=== PATIENT | male | born 1980 | race Two or more races ===

== ENCOUNTER 2025-09-09 21:17 | Emergency (ER) | payer MEDICAID, OTHER ==
[~2025-09-09] VITALS: Ht 182.9 cm; Wt 109.1 kg
[2025-09-09 21:21] VITALS: TEMP 97.8
[2025-09-09 22:22] LABS: COVID AG,FIA SOURCE NASAL SWAB
[2025-09-09 22:25] LABS: PLATELET COUNT (AUTO) 236 K/uL (150-450); RED BLOOD CELL COUNT(AUTO) 4.33 MIL/uL (4.50-5.90); RED CELL DISTRIBUTION WIDTH 13.5 % (11.5-14.5); WHITE BLOOD COUNT (AUTO) 6.5 K/uL (4.5-11.0)
[2025-09-09 22:30] LABS: CALCIUM, TOTAL 9.0 mg/dL (8.8-10.5); CREATININE 0.91 mg/dL (0.60-1.30); GLOMERULAR FILTR. RATE CALC > 60 mL/min (>60); GLUCOSE,RANDOM 101 mg/dL (70-110); SODIUM SERUM 142 mmol/L (136-145); UREA NITROGEN, BLOOD 11 mg/dL (7-18)
[2025-09-09 22:44] LABS: SARS-COV2 (COVID) ANTIGEN,FIA Negative (Negative)
[2025-09-09 23:29] LABS: TROPONIN I-HIGH SENSITIVITY 10 ng/L (<76)
[2025-09-09] MEDS: LORazepam 2 MG/ML VIAL IVP ONE (23:42)
[2025-09-09] MEDS: SODIUM CHLORIDE 0.9% 1,000 ML IV ONE (23:42)
[2025-09-09] MEDS: DIVALPROEX SODIUM 250 MG DR TABLET PO ONE (23:49)
[2025-09-10] MEDS ORDERED: ZOLP-162 PO (00:02)
[2025-09-10] MEDS ORDERED: DIVA-153 PO ×2 (00:02)
[2025-09-10] MEDS ORDERED: TRAZ-186 PO (00:02)
[2025-09-10 01:05] LABS: APPEARANCE,URINE HAZY (CLEAR); GLUCOSE, URINE (UA) NEGATIVE (NEGATIVE); LEUKOCYTE ESTERASE ,URINE NEGATIVE (NEGATIVE); NITRATE,URINE NEGATIVE (NEGATIVE); OCCULT BLOOD,URINE NEGATIVE (NEGATIVE); PH,URINE DRUG SCREEN 7.5 (5.0-8.0); SPECIFIC GRAVITIY, URINE 1.022 (1.003-1.030)
[2025-09-10 01:12] LABS: ALCOHOL, URINE DRUG SCREEN NEGATIVE (NEGATIVE); AMPHET/METH SCREEN,URINE POSITIVE (NEGATIVE); BARBITURATE SCREEN, URINE NEGATIVE (NEGATIVE); CANNABINOID SCREEN,URINE NEGATIVE (NEGATIVE); COCAINE SCREEN,URINE NEGATIVE (NEGATIVE); METHADONE SCREEN, URINE NEGATIVE (NEGATIVE)
[2025-09-10] MEDS: SODIUM CHLORIDE 0.9% 1,000 ML IV ONE ×2 (01:33→01:48)
[2025-09-10 03:40] VITALS: BP 129/78; PULSE 77; RESP 16; O2SAT 98
== END 2025-09-10 03:44 ==
LOC: EMS 21:17
DX: R45.851 Suicidal ideations (principal); R00.0 Tachycardia, unspecified; F15.10 Other stimulant abuse, uncomplicated; F17.210 Nicotine dependence, cigarettes, uncomplicated; Z98.890 Other specified postprocedural states; Z20.822 Contact with and (suspected) exposure to COVID-19
CPT/HCPCS: 99291; 96374; 87426; 80048; 81003; 83735; 84484; 85025; 36415; 93005 ×2; 80307; G0480; J2060; J7030